=== PATIENT | female | born 1985 | race Caucasian/White ===

== ENCOUNTER 2016-06-16 15:23 | Emergency (ER) | payer OTHER ==
[2016-06-16 15:34] VITALS: BP 123/58; PULSE 58; TEMP 97.9; BMI 25.3
[2016-06-16 16:19] LABS: URINE APPEARANCE CLEAR; URINE BILIRUBIN NEGATIVE (NEGATIVE); URINE BLOOD NEGATIVE (NEGATIVE); URINE COLOR LTYELLOW; URINE GLUCOSE (UA) NEGATIVE (NEGATIVE); URINE KETONE NEGATIVE (NEGATIVE); URINE LEUK ESTERASE NEGATIVE (NEGATIVE); URINE NITRITE NEGATIVE (NEGATIVE); URINE PROTEIN NEGATIVE (NEGATIVE); URINE UROBILINOGEN NEGATIVE E.U./dl (0.2-1.0)
[2016-06-16] MEDS ORDERED: AZITHROMYCIN 1 GM PACKET PO ONE (16:53)
--- NOTE | 2016-06-16 17:02 | PDOC ---
History of Present Illness - General Chief Complaint: Urinary Problem Stated Complaint: COLD, FEVER, PAIN Time Seen by Provider: 06/16/16 15:55 History Source: Patient Exam Limitations: No Limitations - History of Present Illness Initial Comments: 06/16/16 16:57 31 yr female with c/o pelvic pain vaginal discharge, low back pain and dysuria for one week. Pt has green yellow vaginal discharge. denies nvd. Timing/Duration: reports: constant Quality: reports: moderate Abdominal Pain Onset Location: reports: suprapubic Pain Radiation: reports: back Past History - Past Medical History Allergies/Adverse Reactions: Allergies Allergy/AdvReac Type Severity Reaction Status Date / Time loratadine [From Claritin-D] Allergy Unknown Verified 06/16/16 15:30 pseudoephedrine sulfate Allergy Unknown Verified 06/16/16 15:30 [From Claritin-D] Penicillins Allergy Rash Verified 06/16/16 15:30 Home Medications: Ambulatory Orders Metronidazole [Flagyl -] 500 mg PO DAILY #28 tablet 06/16/16 Moxifloxacin HCl 400 mg PO DAILY #14 tablet 06/16/16 Thyroid Disease: Yes (hypo) - Surgical History Appendectomy: Yes - Psycho/Social/Smoking Cessation Hx Suicidal Ideation: No Smoking History: Never smoked Abd/GI Specific PMHX - Complaint Specific PMHX Colitis: No Diverticulitis: No Gall Bladder Disease: No GERD: No Hepatitis: No Irritable Bowel Synd (IBS): No Pancreatitis: No GI Ulcer Disease: No Review of Systems - Review of Systems Able to Perform ROS?: Yes Is the patient limited Bangladeshi proficient: No Constitutional: No: Symptoms Reported HEENTM: No: Symptoms Reported Respiratory: No: Symptoms reported Cardiac (ROS): No: Symptoms Reported ABD/GI: Yes: Symptoms Reported, See HPI : No: Symptoms Reported Musculoskeletal: No: Symptoms Reported Integumentary: No: Symptoms Reported Neurological: No: Symptoms reported *Physical Exam - Vital Signs Last Vital Signs Temp Pulse Resp BP Pulse Ox 97.9 F 58 L 19 123/58 99 06/16/16 15:30 06/16/16 15:30 06/16/16 15:30 06/16/16 15:30 06/16/16 15:30 - Physical Exam General Appearance: Yes: Nourished, Appropriately Dressed HEENT: positive: EOMI, KAIT, Normal ENT Inspection, TMs Normal, Pharynx Normal Neck: positive: Supple Respiratory/Chest: positive: Lungs Clear, Normal Breath Sounds Cardiovascular: positive: Regular Rhythm, Regular Rate Female Pelvic Exam: positive: normal external exam, discharge (thick yellow green), adnexal tenderness. negative: CMT Gastrointestinal/Abdominal: positive: Normal Bowel Sounds, Soft Extremity: positive: Normal Capillary Refill, Normal Inspection Integumentary: positive: Normal Color, Dry, Warm Neurologic: positive: Fully Oriented, Alert, Normal Mood/Affect, Normal Response , Motor Strength / ED Treatment Course - ADDITIONAL ORDERS Additional order review: Laboratory Results 06/16/16 16:10 Urine Color Ltyellow Urine Appearance Clear Urine pH 7.0 Ur Specific Sunset 1.021 Urine Protein Negative Urine Glucose (UA) Negative Urine Ketones Negative Urine Blood Negative Urine Nitrite Negative Urine Bilirubin Negative Urine Urobilinogen Negative Ur Leukocyte Esterase Negative Urine HCG, Qual Negative Medical Decision Making - Medical Decision Making 06/16/16 17:04 cc: vaginal discharge, suprapubic pain, low back pain dysuria afebrile no vomiting, non toxic will check labs, UA 06/16/16 19:25 exam consistent with PID will send cultures pt is not vomiting tolerating po no fever will d/c home with strict follow up pt agrees with the plan. pt is pcn allergic will give 2gm Azithromycin, flagyl and cipro (pt has true PCN allergy) discussed the results with pt to follow up *DC/Admit/Observation/Transfer Diagnosis at time of Disposition: Pelvic inflammatory disease - Discharge Dispostion Disposition: HOME Condition at time of disposition: Good - Prescriptions Prescriptions: Metronidazole [Flagyl -] 500 mg PO DAILY #28 tablet Moxifloxacin HCl 400 mg PO DAILY #14 tablet - Referrals Referrals: Greg Laguna MD [Staff Physician] - - Patient Instructions Additional Instructions: avoid any sexual activity until you have been cleared by your taxation consultant take the medication as prescribed for your infection it is very important while taking the medication that you do NOT breast feed the baby, you should "pump and dump" the milk make sure you eat at least 2 cups of yogurt a day or take over the counter lactobacilius pills drink pleanty of fluids, take motrin 600mg every 6hrs for any pain Return to ER for any worsening symptoms,
[2016-06-16] MEDS ORDERED: KETOROLAC TROMETHAMINE 60 MG/2 ML VIAL IM ONE (17:05)
[2016-06-16] MEDS ORDERED: KETOROLAC TROMETHAMINE 60 MG/2 ML VIAL ONE (17:25)
[2016-06-16] MEDS ORDERED: AZITHROMYCIN 1 GM PACKET ONE (17:25)
== END 2016-06-16 17:49 | disposition home or self-care (01) ==
LOC: JERFT 15:23
PROC: 3E0233Z Introduction of Anti-inflammatory into Muscle, Percutaneous Approach (ICD-10-PCS; principal; 2016-06-16)
DX: N73.8 Other specified female pelvic inflammatory diseases (principal)
CPT/HCPCS: 36415; 81003; 84703; 87070; 87205; 87491; 87591; 96372; 99281-25